=== PATIENT | female | born 1935 | race Caucasian/White ===

== ENCOUNTER 2022-03-30 11:39 | Day surgery (SDC) | payer MEDICARE, OTHER ==
[2022-03-25 10:03] LABS: BASOPHILS % (AUTO) 1.2 % (0-1); EOSINOPHILS % (AUTO) 0.9 % (0-6); HEMATOCRIT 37.3 % (35.0-45.0); HEMOGLOBIN 12.9 g/dl (12.0-16.0); LYMPHOCYTES # (AUTO) 0.4 X10'3 (1.1-4.8); LYMPHOCYTES % (AUTO) 23.7 % (21-51); MEAN CORPUSCULAR HGB CONC 34.5 g/dL (33.0-36.5); MEAN CORPUSCULAR VOLUME 110.2 FL (78-98); MEAN PLATELET VOLUME 8.7 FL (7.4-10.4); MONOCYTES # (AUTO) 0.1 X10'3 (0-0.9); MONOCYTES % (AUTO) 6.6 % (2-12); NEUTROPHILS # (AUTO) 1.2 X10'3 (1.8-7.7); NEUTROPHILS % (AUTO) 67.6 % (42-75); PLATELET COUNT 103 X10'3 (140-440); RED BLOOD COUNT 3.38 X10'6 (4.20-5.60); RED CELL DISTRIBUTION WIDTH 15.3 % (11.5-14.5); WHITE BLOOD COUNT 1.8 X10'3 (4.5-11.0)
[2022-03-25 10:17] LABS: APTT 26 SECONDS (22-32)
[2022-03-25 10:21] LABS: ALBUMIN 3.4 G/DL (3.4-5.0); ANION GAP 8 (8-16); BLOOD UREA NITROGEN 21 MG/DL (7-18); BUN/CREATININE RATIO 20.4 (6.6-38.0); CALCIUM 8.9 MG/DL (8.5-10.1); CHLORIDE 102 MMOL/L (99-107); CHOL/HDL RATIO 2.5 (0.00-4.99); CHOLESTEROL 140 MG/DL (0-200); CREATININE 1.03 MG/DL (0.40-0.90); GLUCOSE 103 MG/DL (70-104); HDL CHOLESTEROL 55 MG/DL (35-60); LDL CHOLESTEROL 66 MG/DL (50-100); POTASSIUM 3.9 MMOL/L (3.5-5.1); SODIUM 140 MMOL/L (135-145); TOTAL CARBON DIOXIDE 29.9 MMOL/L (24-32); TRIGLYCERIDES 79 MG/DL (20-135); eGFR 51 ML/MIN
[2022-03-25 10:22] LABS: TOTAL CELLS COUNTED 100
[2022-03-25 10:23] LABS: PLATELET ESTIMATE DECREASED
[~2022-03-30] VITALS: Ht 152.4 cm; Wt 58.7 kg
[2022-03-30] MEDS ORDERED: GABA-530 (12:03)
[2022-03-30] MEDS ORDERED: SIMV10TA98 PO (12:03)
[2022-03-30] MEDS ORDERED: DILT-88 (12:03)
[2022-03-30] MEDS ORDERED: LISI1TAB49 (12:03)
[2022-03-30] MEDS ORDERED: CHOL10006 PO (12:04)
[2022-03-30] MEDS ORDERED: CALC-1151 PO (12:05)
[2022-03-30] MEDS ORDERED: BIOT5000 PO (12:05)
[2022-03-30] MEDS ORDERED: MAGN500C4 PO (12:06)
[2022-03-30] MEDS ORDERED: ASPI-1265 PO (12:07)
[2022-03-30] MEDS ORDERED: [UNRECOGNIZED DRUG - OTHER] (12:08)
[2022-03-30] MEDS ORDERED: [UNRECOGNIZED DRUG - OTHER] (12:09)
[2022-03-30] MEDS ORDERED: DENO60DI SUBCUT (12:10)
[2022-03-30] MEDS ORDERED: LORazepam 0.5 MG tablet PO PRN (12:20)
[2022-03-30] MEDS ORDERED: diphenhydrAMINE 25mg capsule PO PRN (12:20)
[2022-03-30] MEDS ORDERED: normal saline 1,000 ML IV SCH (12:20)
[2022-03-30 12:26] VITALS: BP 109/55
[2022-03-30] MEDS ORDERED: verapamil 2.5 mg/ml inj IV ONE (13:46)
[2022-03-30] MEDS ORDERED: nitroGLYCERIN-Tridil 50MG/D5W 250 ML IV ONE (13:46)
[2022-03-30] MEDS ORDERED: fentaNYL/PF 50MCG/1 ML 2ML syringe ONE (13:47)
[2022-03-30] MEDS ORDERED: heparin 1,000unit/ml 10ml vial 10 ML ONE (13:47)
[2022-03-30] MEDS ORDERED: LIDOcaine 1%/PF 5ML 10 MG/ML VIAL ONE (13:47)
[2022-03-30] MEDS ORDERED: iohexol 350MG/ML 100ml bottle IV ONE (13:47)
[2022-03-30] MEDS ORDERED: midazolam 1 mg/ML 2ml injection ONE (13:47)
[2022-03-30 15:28] VITALS: BP 124/58
[2022-03-30 15:45] VITALS: BP 127/55
[2022-03-30] MEDS ORDERED: HYDROcodone/acetaminophen 5mg/325mg tablet PO PRN (15:50)
[2022-03-30] MEDS ORDERED: HYDROcodone/acetaminophen 10/325mg tab PO PRN (15:50)
[2022-03-30 16:00] VITALS: BP 131/60
[2022-03-30 16:15] VITALS: BP 134/60
[2022-03-30 16:30] VITALS: BP 108/67
== END 2022-03-30 17:15 | disposition home or self-care (01) ==
LOC: SSTAY O 11:39
PROVIDERS: ATTEND Student in an Organized Health Care Education/Training Program
DX: R94.39 Abnormal result of other cardiovascular function study (principal); I35.0 Nonrheumatic aortic (valve) stenosis; I10 Essential (primary) hypertension; Z79.899 Other long term (current) drug therapy; Z98.890 Other specified postprocedural states; Z79.01 Long term (current) use of anticoagulants; Z95.0 Presence of cardiac pacemaker; Z88.6 Allergy status to analgesic agent; Z88.8 Allergy status to other drugs, medicaments and biological substances; Z91.040 Latex allergy status
CPT/HCPCS: 80048; 80061; 85025; 85610; 85730; 93005; 93458; 99152; 99153; C1760; C1769; C1894; J1644; J2250; J3010; J3490; J7030; Q0163; Q9967; 85007; A4620; A5120; A6258

== ENCOUNTER 2022-06-11 11:52 | Outpatient (CLI) | payer MEDICARE, OTHER ==
[~2022-06-11 11:52] MED LIST: ASPI-1265 PO; BIOT5000 PO; CALC-1151 PO; CHOL10006 PO; DENO60DI SUBCUT; DILT-88; GABA-530; LISI1TAB49; MAGN500C4 PO; SIMV10TA98 PO; [UNRECOGNIZED DRUG - OTHER]; [UNRECOGNIZED DRUG - OTHER]
[2022-06-11 13:00] LABS: HEMATOCRIT 34.8 % (35.0-45.0); HEMOGLOBIN 11.9 g/dl (12.0-16.0); MEAN CORPUSCULAR HEMOGLOBIN 38.6 PG (27.0-31.0); MEAN CORPUSCULAR HGB CONC 34.2 g/dL (33.0-36.5); RED BLOOD COUNT 3.08 X10'6 (4.20-5.60); WHITE BLOOD COUNT 3.1 X10'3 (4.5-11.0)
[2022-06-11 13:02] LABS: MEAN PLATELET VOLUME 8.5 FL (7.4-10.4); PLATELET COUNT 182 X10'3 (140-440)
[2022-06-11 13:15] LABS: APTT 24 SECONDS (22-32)
[2022-06-11 13:21] LABS: ALANINE AMINOTRANSFERASE 55 U/L (12-78); ALBUMIN 2.9 G/DL (3.4-5.0); ALBUMIN/GLOBULIN RATIO 0.9 (1.1-1.5); ALKALINE PHOSPHATASE 89 IU/L (46-116); ANION GAP 9 (8-16); ASPARTATE AMINO TRANSFERASE 60 U/L (10-37); BILIRUBIN,TOTAL 0.4 MG/DL (0.1-1.0); BLOOD UREA NITROGEN 18 MG/DL (7-18); BUN/CREATININE RATIO 19.6 (6.6-38.0); CHLORIDE 103 MMOL/L (99-107); CREATININE 0.92 MG/DL (0.40-0.90); GLUCOSE 133 MG/DL (70-104); POTASSIUM 3.1 MMOL/L (3.5-5.1); SODIUM 143 MMOL/L (135-145); TOTAL CARBON DIOXIDE 31.3 MMOL/L (24-32); TOTAL PROTEIN 6.3 G/DL (6.4-8.2); eGFR 58 ML/MIN
[2022-06-11] MEDS ORDERED: IODIXANOL 320 MG/ML INFUS..BTL 100ML IV ONE (13:34)
[2022-06-11 14:17] LABS: TOTAL CELLS COUNTED 100
[2022-06-11 14:18] LABS: PLATELET ESTIMATE NORMAL
[2022-06-11 14:19] LABS: ELLIPTOCYTES 1+; SCHISTOCYTES FEW
== END 2022-06-11 23:59 | disposition home or self-care (01) ==
LOC: RAD 11:52
PROVIDERS: ATTEND Internal Medicine Cardiovascular Disease
DX: R94.2 Abnormal results of pulmonary function studies (principal); I70.0 Atherosclerosis of aorta; J43.9 Emphysema, unspecified; K57.30 Diverticulosis of large intestine without perforation or abscess without bleeding; M47.814 Spondylosis without myelopathy or radiculopathy, thoracic region; I35.0 Nonrheumatic aortic (valve) stenosis; R06.02 Shortness of breath; I65.29 Occlusion and stenosis of unspecified carotid artery; Z95.0 Presence of cardiac pacemaker; Z90.49 Acquired absence of other specified parts of digestive tract
CPT/HCPCS: 36415; 71046; 71275; 74174; 80053; 85007; 85025; 85610; 85730; 94010; 94727; 94729; J3490; Q9967

== ENCOUNTER 2022-06-24 14:07 | Outpatient (CLI) | payer MEDICARE, OTHER ==
[~2022-06-24] VITALS: Ht 152.4 cm; Wt 58.0 kg
[2022-06-24 14:32] VITALS: BP 144/50
--- NOTE | 2022-06-24 14:33 | NUR ---
Patient and Daughter Bijal were in the [facility] clinic today to consult with Dr. So, Dr. Geovani Mena and Dr. Castillo. KCQ12 completed. Walk test completed. Vital signs measured. Patient education reviewed and questions answered. Addendum: 06/24/22 at 1457 by Ciera Lozoya RN Dr. Crooks saw pt today not Dr. So
== END 2022-06-24 23:59 | disposition home or self-care (01) ==
LOC: TAVR 14:07
PROVIDERS: ATTEND Internal Medicine Cardiovascular Disease
DX: I08.8 Other rheumatic multiple valve diseases (principal); R06.02 Shortness of breath; I65.29 Occlusion and stenosis of unspecified carotid artery
CPT/HCPCS: 93308

== ENCOUNTER 2022-08-05 05:34 | Inpatient (IN) | payer MEDICARE, OTHER ==
[2022-07-29 16:07] LABS: BASOPHILS % (AUTO) 1.9 % (0-1); EOSINOPHILS % (AUTO) 1.4 % (0-6); LYMPHOCYTES # (AUTO) 0.4 X10'3 (1.1-4.8); LYMPHOCYTES % (AUTO) 21.1 % (21-51); MEAN CORPUSCULAR HEMOGLOBIN 38.2 PG (27.0-31.0); MEAN CORPUSCULAR HGB CONC 34.4 g/dL (33.0-36.5); MEAN CORPUSCULAR VOLUME 110.9 FL (78-98); MEAN PLATELET VOLUME 8.6 FL (7.4-10.4); MONOCYTES # (AUTO) 0.1 X10'3 (0-0.9); MONOCYTES % (AUTO) 6.7 % (2-12); NEUTROPHILS # (AUTO) 1.4 X10'3 (1.8-7.7); NEUTROPHILS % (AUTO) 68.9 % (42-75); PRE OP HEMATOCRIT 38.1 % (35.0-45.0); PRE OP HEMOGLOBIN 13.1 g/dL (12.0-16.0); PRE OP PLATELET COUNT 107 X10'3 (140-440); RED BLOOD COUNT 3.44 X10'6 (4.20-5.60); RED CELL DISTRIBUTION WIDTH 14.8 % (11.5-14.5)
[2022-07-29 16:18] LABS: PRE OP PROTIME 10.3 SECONDS (9.0-12.0)
[2022-07-29 16:29] LABS: ALBUMIN 3.2 G/DL (3.4-5.0); ALBUMIN/GLOBULIN RATIO 0.9 (1.1-1.5); ALKALINE PHOSPHATASE 103 IU/L (46-116); BLOOD UREA NITROGEN 23 MG/DL (7-18); BUN/CREATININE RATIO 21.3 (6.6-38.0); CALCIUM 9.5 MG/DL (8.5-10.1); CHLORIDE 98 MMOL/L (99-107); CREATININE 1.08 MG/DL (0.40-0.90); PRE OP ALT 73 U/L (30-65); PRE OP ANION GAP 9 (8-16); PRE OP AST 75 U/L (10-37); PRE OP BILIRUB, TOTAL 0.5 MG/DL (0.0-1.0); PRE OP GLUCOSE 89 MG/DL (70-104); PRE OP POTASSIUM 3.8 MMOL/L (3.4-5.1); PRE OP SODIUM 135 MMOL/L (135-145); TOTAL PROTEIN 6.7 G/DL (6.4-8.2); eGFR 48 ML/MIN
[2022-07-29 16:59] LABS: CLARITY,URINE CLOUDY (Clear); COLOR,URINE YELLOW (Yellow); GLUCOSE, URINE NEGATIVE (Neg); KETONES,URINE NEGATIVE (Neg); LEUKOCYTE ESTERASE ,URINE SMALL (Neg); NITRITES, URINE NEGATIVE (Neg); OCCULT BLOOD,URINE NEGATIVE (Neg); PH,URINE 6.5 (4.8-8.0); PROTEIN,URINE NEGATIVE (Neg); UA COLLECTION TYPE CLN CATCH MIDSTREAM; UROBILINOGEN,URINE 0.2 E.U/dL (0.2-1.0)
[2022-07-29 17:44] LABS: SQUAMOUS EPITHELIAL CELL,UR FEW /LPF (FEW); TRANSITIONAL EPI CELLS,URINE FEW /HPF
[2022-07-29 17:45] LABS: BACTERIA,URINE FEW /HPF (Neg); MUCUS STRANDS FEW /LPF (Neg); RBC,URINE 0-2 /HPF (0-2); WBC,URINE 0-4 /HPF (0-4)
[2022-07-29 17:59] LABS: ELLIPTOCYTES FEW; SCHISTOCYTES FEW; TOTAL CELLS COUNTED 100
[2022-07-30 17:20] LABS: PLATELET ESTIMATE DECREASED
[~2022-08-05] VITALS: Ht 152.4 cm; Wt 55.6 kg
[2022-08-05] VITALS (48 sets, daily range): BP systolic 90–144; BP diastolic 37–93
[~2022-08-05 05:34] MED LIST changes: -DILT-88; +DILT-88 PO; +DOCUMENT DATE & TIME OF BETA-BLOCKER PO ONE; -GABA-530; +GABA-530 PO; -LISI1TAB49; +LISI1TAB49 PO; +PROP20TA6 PO; -SIMV10TA98 PO; -[UNRECOGNIZED DRUG - OTHER]; -[UNRECOGNIZED DRUG - OTHER]; +aspirin 325mg tablet PO ONE; +ceFAZolin inj. 2,000 MG in dextrose 5%-water 100 ML IV ONE; +famotidine 20mg tablet PO ONE; +ringers solution, lacted 1,000 ML IV SCH; +vancomycin/NS 1 GM in NS 250 ML IV ONE
[2022-08-05] MEDS ORDERED: ondansetron/PF 4mg/2ml inj IV PRN ×3 (06:00→08:45)
[2022-08-05] MEDS ORDERED: protamine sulfate 10mg/ml inj. ONE (06:04)
[2022-08-05] MEDS ORDERED: LIDOcaine 1% 30ml preserv. free vial ONE (06:16)
[2022-08-05] MEDS ORDERED: iohexol 350 MG/ML 50ML vial IV ONE ×2 (06:16→06:26)
[2022-08-05] MEDS ORDERED: iohexol 350MG/ML 100ml bottle IV ONE (06:17)
[2022-08-05] MEDS ORDERED: heparin 1,000 UNITS/NS 500ml 500 ML ONE (06:21)
[2022-08-05] MEDS ORDERED: LIDOcaine 1% (10mg/ml) 2ml vial ONE (06:31)
[2022-08-05] MEDS: phenylephrine inj 50 MG in normal saline 250ml IV solN IV SCH (06:58)
[2022-08-05] MEDS: nitroPRUSSIDE (NIPRIDE) (200MCG/ML) 100ML Drip IV SCH (06:59)
[2022-08-05] MEDS ORDERED: morphine 4 MG/ML inj SYRINge IV PRN (07:10)
[2022-08-05] MEDS ORDERED: fentaNYL/PF 50MCG/1 ML 2ML syringe IV PRN ×2 (07:10)
[2022-08-05] MEDS ORDERED: labetalol 20mg/4ml (5mg/ml) syringe IV PRN ×2 (07:10→08:45)
[2022-08-05] MEDS ORDERED: hydrALAZINE 20mg/ml inj. IV PRN ×2 (07:10→08:45)
[2022-08-05] MEDS ORDERED: morphine 2 MG/ML inj. syringe IV PRN (07:10)
[2022-08-05] MEDS ORDERED: ringers solution, lacted 1,000 ML IV SCH (07:10)
[2022-08-05] MEDS ORDERED: dexmedetomidine 200mcg/2ml inj. IV ONE (07:14)
[2022-08-05] MEDS ORDERED: sevoflurane 250ml liquid IH ONE (07:15)
[2022-08-05] MEDS ORDERED: fentaNYL/PF 50MCG/1 ML 2ML syringe ONE (07:17)
[2022-08-05] MEDS ORDERED: midazolam 1 mg/ML 2ml injection ONE ×2 (07:17)
[2022-08-05] MEDS ORDERED: propofol inj 20 ML IV ONE (07:29)
[2022-08-05] MEDS ORDERED: heparin 1,000unit/ml 10ml vial 10 ML ONE (07:33)
[2022-08-05] MEDS ORDERED: diphenhydrAMINE 25mg capsule PO PRN (08:45)
[2022-08-05] MEDS ORDERED: pantoprazole 40mg Tablet.DR PO PRN (08:45)
[2022-08-05] MEDS ORDERED: proCHLORperazine 10 MG/2 ml inj IV PRN (08:45)
[2022-08-05] MEDS ORDERED: potassium Cl 40MEQ/270ML bag 250 ML IV PRN (08:45)
[2022-08-05] MEDS ORDERED: potassium CL 10mEq/100ml bag 100 ML IV PRN (08:45)
[2022-08-05] MEDS ORDERED: acetaminophen 325mg tablet PO PRN (08:45)
[2022-08-05] MEDS ORDERED: ALPRAZolam 0.25mg tablet PO PRN (08:45)
[2022-08-05] MEDS ORDERED: potassium Cl 20mEq/100mL bag 100 ML IV PRN (08:45)
[2022-08-05] MEDS: normal saline 1000ml 1,000 ML IV SCH ×2 (08:45→18:45)
[2022-08-05] MEDS ORDERED: magnesium 2GM in 50ml NS 50 ML IV PRN (08:45)
[2022-08-05] MEDS ORDERED: potassium Cl 20 mEq SR tablet PO PRN (08:45)
[2022-08-05] MEDS ORDERED: magnesium 4gm in 100ml NS 100 ML IV PRN (08:45)
[2022-08-05] MEDS ORDERED: potassium Cl 40MEQ/1/2NS 520ml 520 ML IV PRN (08:45)
--- NOTE | 2022-08-05 08:47 | NUR ---
Received from OR via HOSPITAL BED, accompanied by Anesthesiologist DR DURAND and report given by Anesthesiologist. PT PRESENT WITH PIV 18G RIGHT AC, ART LINE RIGHT WRIST. PEDAL PULSES FOUND WITH DOPPLER. UNABLE TO DO A NEURO CHECK AT THIS TIME, PT IS SLEEPY. Addendum: 08/05/22 at 0936 by Gladis Dickerson RN, RN Amended: Links added.
--- NOTE | 2022-08-05 09:33 | NUR ---
PT IS AWAKE AND I AM ABLE TO DO NEURO CHECK, SEE NEURO EXAM.
--- NOTE | 2022-08-05 10:50 | NUR ---
DR CALLE AT BEDSIDE. PT TO BE WEANED OFF OF PHENYLEPHERINE AND SENT TO [facility]. Addendum: 08/05/22 at 1259 by Gladis Dickerson RN, RN Amended: Links added.
--- NOTE | 2022-08-05 11:50 | NUR ---
PHENYLEPHERINE TURNED OFF, PT DOING WELL. BP 108/48 HR 62. Addendum: 08/05/22 at 1302 by Gladis Dickerson RN, RN Amended: Links added.
--- NOTE | 2022-08-05 11:50 | NUR ---
PT OFF OF P[HENYLEPHERINE. PT DOING WELL WITH BP OF 105/42., HR 64.
[2022-08-05] MEDS: gabapentin 100mg capsule PO SCH ×2 (13:00→20:55)
--- NOTE | 2022-08-05 13:02 | NUR ---
PT CONTINUES TO DO WELL. BP 106/50, HR 62 Addendum: 08/05/22 at 1303 by Gladis Dickerson RN RN Amended: Links added.
--- NOTE | 2022-08-05 13:20 | NUR ---
ART LINE REMOVED, PT TOLERATED WELL. Addendum: 08/05/22 at 1325 by Gladis Dickerson RN RN Amended: Links added.
--- NOTE | 2022-08-05 14:27 | NUR ---
Report called to receiving nurse SANDOR WHITE. Transferred via HOSITAL BED ON MONITOR TO ROOM 3023B BY QUETA WHITE. BED IN LOW LOCKED POSITION, WITH CLAL LIGHT IN REACH. PT DAUGHTER CHACHA TO ROOM WITH PT. Sage Rojas'S DAUGHTER HAS PT BELONGINGS. Special Issues communicated to receiving nurse. Addendum: 08/05/22 at 1434 by Gldais Dickerson RN RN Amended: Links added.
--- NOTE | 2022-08-05 15:40 | NUR ---
Received report from Gladis in OR recovery, pt arrived on unit @ approx 1440 via gurney. Pt has two daughters at bedside. Pt is alert and oriented. Pt was assessed and allowed to sit upright @1500, 6 hrs post recovery. Pt was hungry and eating lunch, tolerating well. Post surgical vitals started, and stable.
[2022-08-05] MEDS: ceFAZolin 1GM/D5W- ADD-VANTAGE 50 ML IV SCH (16:00)
[2022-08-05] MEDS: sod chloride 0.9% 10ml flush syringe IV SCH (16:00)
--- NOTE | 2022-08-05 18:15 | NUR ---
Patient in room PCU 3023. I have received report from Leslie Pond RN and had the opportunity to ask questions and assume patient care.
[2022-08-05] MEDS: HYDROchlorothiazide 12.5mg capsule PO SCH (20:00)
[2022-08-05] MEDS: vancomycin/NS 1 GM ADD-VANTAGE 250 ML IV SCH (20:19)
[2022-08-05] MEDS: diltiazem SR 60mg capsule (twice daily) PO SCH (20:55)
[2022-08-05] MEDS: lisinopril 10 MG tablet PO SCH (20:55)
[2022-08-05] MEDS: propranolol 10mg tablet PO SCH (20:56)
[2022-08-06] VITALS (7 sets, daily range): BP systolic 103–142; BP diastolic 32–75
[2022-08-06] MEDS: normal saline 1000ml 1,000 ML IV SCH ×2 (04:45→14:45)
[2022-08-06] MEDS: nitroPRUSSIDE (NIPRIDE) (200MCG/ML) 100ML Drip IV SCH (05:43)
--- NOTE | 2022-08-06 06:02 | NUR ---
Problems reprioritized. Patient report given, questions answered & plan of care reviewed with Amada WHITE.
[2022-08-06] MEDS: calcium carbonate 500mg tablet PO SCH (08:00)
[2022-08-06] MEDS: magnesium oxide 400mg tablet PO SCH (08:00)
[2022-08-06] MEDS: HYDROchlorothiazide 12.5mg capsule PO SCH ×2 (08:00→19:57)
[2022-08-06] MEDS: ceFAZolin 1GM/D5W- ADD-VANTAGE 50 ML IV SCH ×2 (08:00)
[2022-08-06] MEDS: sod chloride 0.9% 10ml flush syringe IV SCH ×3 (08:00→16:00)
[2022-08-06 08:25] LABS: ALANINE AMINOTRANSFERASE 59 U/L (12-78); ALBUMIN 2.4 G/DL (3.4-5.0); ALBUMIN/GLOBULIN RATIO 0.8 (1.1-1.5); ALKALINE PHOSPHATASE 89 IU/L (46-116); ANION GAP 5 (8-16); ASPARTATE AMINO TRANSFERASE 80 U/L (10-37); BILIRUBIN,TOTAL 0.5 MG/DL (0.1-1.0); BLOOD UREA NITROGEN 19 MG/DL (7-18); BUN/CREATININE RATIO 21.1 (6.6-38.0); CALCIUM 7.7 MG/DL (8.5-10.1); CHLORIDE 105 MMOL/L (99-107); GLUCOSE 97 MG/DL (70-104); MAGNESIUM 2.2 MG/DL (1.5-2.4); POTASSIUM 3.2 MMOL/L (3.5-5.1); SODIUM 138 MMOL/L (135-145); TOTAL CARBON DIOXIDE 28.3 MMOL/L (24-32); TOTAL PROTEIN 5.3 G/DL (6.4-8.2); eGFR 59 ML/MIN
[2022-08-06 08:59] LABS: MONOCYTES # (AUTO) 0.3 X10'3 (0-0.9)
[2022-08-06 09:01] LABS: BASOPHILS % (AUTO) 1.2 % (0-1); EOSINOPHILS % (AUTO) 0.8 % (0-6); HEMATOCRIT 29.8 % (35.0-45.0); HEMOGLOBIN 10.1 g/dl (12.0-16.0); LYMPHOCYTES # (AUTO) 0.2 X10'3 (1.1-4.8); LYMPHOCYTES % (AUTO) 11.8 % (21-51); MEAN CORPUSCULAR HEMOGLOBIN 37.8 PG (27.0-31.0); MEAN CORPUSCULAR HGB CONC 33.8 g/dL (33.0-36.5); MEAN PLATELET VOLUME 8.9 FL (7.4-10.4); MONOCYTES % (AUTO) 14.2 % (2-12); NEUTROPHILS # (AUTO) 1.4 X10'3 (1.8-7.7); PLATELET COUNT 56 X10'3 (140-440); RED BLOOD COUNT 2.66 X10'6 (4.20-5.60); RED CELL DISTRIBUTION WIDTH 15.3 % (11.5-14.5)
[2022-08-06 09:32] LABS: ELLIPTOCYTES 1+; PLATELET ESTIMATE DECREASED; SCHISTOCYTES FEW
[2022-08-06] MEDS: gabapentin 100mg capsule PO SCH ×2 (10:27→19:56)
[2022-08-06] MEDS: aspirin 81mg tab.chew PO SCH (10:28)
[2022-08-06] MEDS: diltiazem SR 60mg capsule (twice daily) PO SCH ×2 (10:28→19:55)
[2022-08-06] MEDS: lisinopril 10 MG tablet PO SCH ×2 (10:29→19:56)
[2022-08-06] MEDS: cholecalciferol (vitamin D3) 1,000 unit (25mcg) tablet PO SCH (10:30)
[2022-08-06] MEDS: phenylephrine inj 50 MG in normal saline 250ml IV solN IV SCH (11:38)
[2022-08-06] MEDS: vancomycin/NS 1 GM ADD-VANTAGE 250 ML IV SCH (13:03)
[2022-08-06] MEDS ORDERED: furosemide 20 MG/2 ML vial IV ONE (16:45)
[2022-08-06] MEDS: propranolol 10mg tablet PO SCH (19:58)
[2022-08-06] MEDS: docusate sod 100mg capsule PO PRN (20:24)
--- NOTE | 2022-08-07 00:23 | NUR ---
Pt. is awake alert oriented x4 c/o feeling tired monitor at bedside. HoloSystolic murmur audible along left sternal border. Peripheral SL intact. Pt has multiple bruises on face and neck. Needs assistance to BSC voids yellow clear urine. Had sandwich in place of dinner. Refused Inderal. States is taking too many BP meds. Pt. states will be going home tomorrow.
[2022-08-07] MEDS: normal saline 1000ml 1,000 ML IV SCH ×2 (00:45→09:18)
[2022-08-07 02:00] VITALS: BP 118/45
[2022-08-07 07:00] VITALS: BP 122/51
[2022-08-07] MEDS: nitroPRUSSIDE (NIPRIDE) (200MCG/ML) 100ML Drip IV SCH (08:01)
[2022-08-07] MEDS: sod chloride 0.9% 10ml flush syringe IV SCH ×2 (08:02)
[2022-08-07] MEDS: cholecalciferol (vitamin D3) 1,000 unit (25mcg) tablet PO SCH (08:02)
[2022-08-07] MEDS: calcium carbonate 500mg tablet PO SCH (08:02)
[2022-08-07 08:03] VITALS: BP_SYST 130
[2022-08-07] MEDS: magnesium oxide 400mg tablet PO SCH (08:03)
[2022-08-07] MEDS: HYDROchlorothiazide 12.5mg capsule PO SCH (08:03)
[2022-08-07] MEDS: lisinopril 10 MG tablet PO SCH (08:03)
[2022-08-07] MEDS: diltiazem SR 60mg capsule (twice daily) PO SCH (08:03)
[2022-08-07] MEDS: aspirin 81mg tab.chew PO SCH (08:04)
[2022-08-07] MEDS: gabapentin 100mg capsule PO SCH (08:04)
[2022-08-07] MEDS: docusate sod 100mg capsule PO PRN (08:09)
== END 2022-08-07 14:40 | disposition home or self-care (01) | DRG 266 ==
LOC: PAS IN 05:34 → PCU 3S 14:34
PROVIDERS: ADMIT Internal Medicine Cardiovascular Disease; ATTEND Internal Medicine Cardiovascular Disease
PROC: B41D1ZZ Fluoroscopy of Aorta and Bilateral Lower Extremity Arteries using Low Osmolar Contrast (ICD-10-PCS; 2022-08-05)
PROC: 02RF38Z Replacement of Aortic Valve with Zooplastic Tissue, Percutaneous Approach (ICD-10-PCS; principal; 2022-08-05 07:15)
DX: I35.0 Nonrheumatic aortic (valve) stenosis (principal); Z00.6 Encounter for examination for normal comparison and control in clinical research program; I50.33 Acute on chronic diastolic (congestive) heart failure; C78.00 Secondary malignant neoplasm of unspecified lung; I11.0 Hypertensive heart disease with heart failure; I45.4 Nonspecific intraventricular block; E78.00 Pure hypercholesterolemia, unspecified; Z85.3 Personal history of malignant neoplasm of breast; Z90.10 Acquired absence of unspecified breast and nipple; Z95.0 Presence of cardiac pacemaker; Z88.5 Allergy status to narcotic agent; Z88.8 Allergy status to other drugs, medicaments and biological substances
CPT/HCPCS: 33361; 36415; 71045; 71046; 76937; 80053; 81001; 82948; 83735; 83880; 85007; 85008; 85025; 85347; 85610; 86885; 86900; 86901; 86920; 87081; 87088; 93005; 93308; A4615; A4618; A6212; A6250; A6258; A6449; C1760; C1769; C1894; G0378; J0690; J1644; J1940; J2250; J2370; J2704; J2720; J3010; J3370; J3490; J7030; J7040; J7050; J7060; J7120; Q9967

== ENCOUNTER → 2022-08-13 | Outpatient (CLI) | payer MEDICARE, OTHER ==
[~2022-08-13] MED LIST changes: -DOCUMENT DATE & TIME OF BETA-BLOCKER PO ONE; -aspirin 325mg tablet PO ONE; -ceFAZolin inj. 2,000 MG in dextrose 5%-water 100 ML IV ONE; -famotidine 20mg tablet PO ONE; -ringers solution, lacted 1,000 ML IV SCH; -vancomycin/NS 1 GM in NS 250 ML IV ONE
[2022-08-13 13:07] LABS: WHITE BLOOD COUNT 3.4 X10'3 (4.5-11.0)
[2022-08-13 13:10] LABS: HEMATOCRIT 34.4 % (35.0-45.0); HEMOGLOBIN 11.8 g/dl (12.0-16.0); MEAN CORPUSCULAR HEMOGLOBIN 38.1 PG (27.0-31.0); MEAN CORPUSCULAR HGB CONC 34.4 g/dL (33.0-36.5); MEAN CORPUSCULAR VOLUME 110.5 FL (78-98); MEAN PLATELET VOLUME 9.8 FL (7.4-10.4); PLATELET COUNT 116 X10'3 (140-440); RED BLOOD COUNT 3.11 X10'6 (4.20-5.60); RED CELL DISTRIBUTION WIDTH 14.6 % (11.5-14.5)
[2022-08-13 13:20] LABS: ALANINE AMINOTRANSFERASE 60 U/L (12-78); ALBUMIN 2.8 G/DL (3.4-5.0); ALBUMIN/GLOBULIN RATIO 0.8 (1.1-1.5); ALKALINE PHOSPHATASE 117 IU/L (46-116); ANION GAP 1 (8-16); ASPARTATE AMINO TRANSFERASE 74 U/L (10-37); BILIRUBIN,TOTAL 0.7 MG/DL (0.1-1.0); BLOOD UREA NITROGEN 20 MG/DL (7-18); BUN/CREATININE RATIO 23.3 (6.6-38.0); CALCIUM 9.4 MG/DL (8.5-10.1); CHLORIDE 103 MMOL/L (99-107); CREATININE 0.86 MG/DL (0.40-0.90); GLUCOSE 94 MG/DL (70-104); POTASSIUM 3.5 MMOL/L (3.5-5.1); SODIUM 138 MMOL/L (135-145); TOTAL CARBON DIOXIDE 34.4 MMOL/L (24-32); TOTAL PROTEIN 6.3 G/DL (6.4-8.2); eGFR 62 ML/MIN
[2022-08-13 13:29] LABS: PLATELET ESTIMATE DECREASED; TOTAL CELLS COUNTED 100
[2022-08-13 13:30] LABS: LARGE PLATELETS FEW
[2022-08-13 13:31] LABS: ELLIPTOCYTES FEW; POLYCHROMASIA FEW; SCHISTOCYTES FEW; TEAR DROP CELLS FEW
== END | disposition home or self-care (01) ==
LOC: LAB 12:06
DX: Z48.812 Encounter for surgical aftercare following surgery on the circulatory system (principal); Z95.2 Presence of prosthetic heart valve
CPT/HCPCS: 36415; 80053; 85007; 85025